=== PATIENT | male | born 1990 | race Caucasian/White ===

== ENCOUNTER 2021-07-19 14:33 | Outpatient (REF) | payer OTHER, SELFPAY | END 2021-07-19 14:34 | disposition home or self-care (01) | LOC: HO.LAB 14:33 | PROVIDERS: Visit Provider Internal Medicine | DX: Z20.822 Contact with and (suspected) exposure to COVID-19 (principal) | CPT/HCPCS: C9803; U0003; U0005 ==

== ENCOUNTER 2021-09-25 19:41 | Emergency (ER) | payer MEDICAID, SELFPAY | END 2021-09-25 21:23 | disposition left against medical advice (07) | LOC: HO.ED 21:25 | PROVIDERS: Emergency Provider Emergency Medicine | DX: R09.81 Nasal congestion (principal) ==

== ENCOUNTER 2021-09-27 08:07 | Emergency (ER) | payer MEDICAID, SELFPAY ==
[2021-09-27 08:43] VITALS: BP 183/103; PULSE 77; RESP 18; TEMP 36.6; O2SAT 100; BMI 25.0
--- NOTE | 2021-09-27 08:48 | ED_ITS ---
HPI - URI/Sore Throat General Chief Complaint: Upper Respiratory Symptoms Stated Complaint: difficulty breathing, migraine Time Seen by Provider: 09/27/21 08:41 Source: patient Mode of arrival: ambulatory Limitations: no limitations History of Present Illness HPI Narrative: Patient comes to the emergency room complaining of nasal congestion and sinus pressure. Patient states he has been going on for approximately 1 week. Patient states that he has been already immunize twice for COVID-19. Patient denies fever chills, no throat pain, no chest pain or shortness of breath. Related Data Previous Rx's Medication Instructions Recorded fluticasone propionate 50 1 spray INTRANASAL Q12H #16 g 09/27/21 mcg/actuation nasal spray,suspension (Flonase Allergy Relief) Allergies Allergy/AdvReac Type Severity Reaction Status Date / Time No Known Allergies Allergy Verified 09/27/21 08:41 Review of Systems Review of Systems: Constitutional : No Weight loss, No Fever, No Chills, No Night Sweats, No Fatigue, No Malaise ENT/Mouth : No Hearing loss, No Ear Pain, complaining of Nasal Congestion, complaining of Sinus Pain, No Hoarseness, No sore throat, No Rhinorrhea, No Swallowing Difficulty Eyes: No Eye Pain, No Swelling, No Redness, No Foreign Body, No Discharge, No Vision Changes Cardiovascular : No Chest Pain, No SOB, No Dyspnea on Exertion, No Orthopnea, No Edema, No Palpitations Respiratory : No Cough, No Sputum, No Wheezing, No Smoke Exposure, No Dyspnea Gastrointestinal : No Nausea, No Vomiting, No Diarrhea, No Constipation, No abdominal Pain, No Hematochezia, No Melena Genitourinary : no irregular bleeding, No Dysuria, No Urinary Frequency, No Hematuria, No Urinary Incontinence, No Urgency, No Flank Pain, No Urinary Flow Changes, No Hesitancy Musculoskeletal : No joint pain, No Myalgias, No Joint Swelling Skin : No Skin Lesions, No rash Neuro : No Weakness, No Numbness, No Paresthesias, No Loss of Consciousness, No Dizziness, No Headache Psych : No Anxiety/Panic, No Depression, No SI/HI/AH/VH, No Social Issues, Heme/Lymph: No Bruising, No Bleeding,No Lymphadenopathy Endocrine : No Polyuria, No Polydipsia, No Temperature Intolerance [facility] Past Medical History Medical History HIV (human immunodeficiency virus infection) Social History Social History Advance Directives: No Advance Directives Information Provided: No Physical Exam Vital Signs: Vital Signs: Last Vital Signs Temp 97.8 F 09/27/21 08:43 Pulse 77 09/27/21 08:43 Resp 18 09/27/21 08:43 BP 183/103 H 09/27/21 08:43 Pulse Ox 100 09/27/21 08:43 BMI result Body Mass Index 25.0 Const: Other: Appearance: Alert. Oriented X3. No acute distress. Eyes: Pupils equal, round and reactive to light. ENT: Pharynx normal. Mild discomfort to palpation over the ethmoid sinus Neck: Normal inspection. Neck supple. No lymph nodes noted. No crepitus CVS: Normal heart rate and rhythm. Pulses normal. Normal S1 and S2 Respiratory: No respiratory distress. Breath sounds normal. No Wheezing. No rales Abdomen: Soft and nontender. No rigidity. No distention. good BS x4 Skin: Skin warm and dry. Normal skin color. Normal skin turgor. Extremities: No lower extremity edema. No lower extremity edema. No Lacerations. No Rash Neuro: Oriented X 3. No motor deficit. No sensory deficit. Moving all extermities. No slurred speech. Course Course Course Narrative: Patient likely having viral sinusitis. COVID test is negative. MDM - URI/Sore Throat Lab Data Labs: Lab Results 09/27/21 Range/Units 08:46 COVID-19 (ALESHA) Negative (Negative) COVID-19 Clin Com See Note Discharge Plan Discharge Clinical Impression: Acute viral sinusitis Upper respiratory infection Qualifiers: URI type: unspecified URI Qualified Code(s): J06.9 - Acute upper respiratory infection, unspecified Patient Disposition: Home, Self-Care Instructions: Sinusitis (ED) Additional Instructions: Please follow-up with your primary care physician tomorrow. If you have any worsening or new symptoms, please return to the emergency room or call 911 Prescriptions: New fluticasone propionate [Flonase Allergy Relief] 50 mcg/actuation spray,suspension 1 spray intranasal Q12H Qty: 16 RF: 0
[2021-09-27 09:10] LABS: COVID-19 Test Negative (Negative)
== END 2021-09-27 09:58 | disposition home or self-care (01) ==
PROVIDERS: Physician Assistant; Emergency Provider Emergency Medicine
DX: J01.90 Acute sinusitis, unspecified (principal); Z20.822 Contact with and (suspected) exposure to COVID-19
CPT/HCPCS: 36415; 87635; 99283

== ENCOUNTER 2025-02-14 15:09 | Outpatient (REF) | payer MEDICAID, SELFPAY ==
[2025-02-14 16:01] LABS: MANUAL DIFF FLAG NO
[2025-02-14 16:19] LABS: Basophils Percent Auto 0.2 % (0-2); Eosinophils Percent Auto 0.2 % (0-4); Hematocrit 27.8 % (42.0-52.0); Hemoglobin 8.7 g/dl (14.0-18.0); Imm Gran Abs Auto 0.08 X10*3/uL (0.00-0.03); Lymphocytes Absolute Auto 0.9 X10*3/uL (1.2-4.9); Lymphocytes Percent Auto 10.4 % (20-40); Mean Corpuscular HGB Conc 31.3 g/dl (31.0-36.0); Mean Corpuscular Hemoglobin 25.1 pg (27.0-33.0); Mean Corpuscular Volume 80.3 fL (80.0-98.0); Mean Platelet Volume 9.4 fL (9.4-12.4); Monocytes Absolute Auto 0.6 X10*3/uL (0.1-1.2); Monocytes Percent Auto 7.6 % (2-11); Neutrophils Absolute Auto 6.6 x10*3/uL (2.0-8.3); Neutrophils Percent Auto 80.6 % (45-73); Platelet Count 551 X10*3/uL (160-400); Red Blood Count 3.46 X10*6/uL (4.60-5.80); Red Cell Distribution Width 13.8 % (11.0-16.0); White Blood Count 8.2 X10*3/uL (4.8-10.8)
[2025-02-14 16:35] LABS: Alanine Aminotransferase 15 U/L (0-40); Albumin Level 3.5 g/dL (3.5-5.0); Alkaline Phosphatase 79 U/L (39-117); Anion Gap 15 (12-20); Aspartate Amino Transferase 29 U/L (5-37); Bilirubin Direct 0.3 mg/dL (0.0-0.5); Bilirubin Total 0.6 mg/dL (0.0-1.0); Blood Urea Nitrogen 14 mg/dL (9-16); Carbon Dioxide 26 mmol/L (22-29); Chloride 99 mmol/L (96-108); Estimated Glomerular Filt Rate > 60; Glucose Random 93 mg/dL (60-115); Potassium 4.1 mmol/L (3.3-5.1); Sodium 136 mmol/L (135-145); Total Protein 8.6 g/dL (6.5-8.0)
[2025-02-15 16:07] LABS: CT PCR NOT DETECTED (Not Detect.); NG PCR NOT DETECTED (Not Detect.)
[2025-02-17 01:08] LABS: TSpotTB Invalid (Negative)
[2025-02-17 04:46] LABS: Syphilis Screen Reactive (Nonreactive)
[2025-02-17 05:05] LABS: HBS Num1 32.48 mIU/mL (0-7.99); HBc Num1 0.07 S/CO (0.00-0.79); HBsAGNum1 0.27 S/CO (0.00-0.99); Hepatitis B Core Antibody Nonreactive (Nonreactive); Hepatitis B Surface Antigen Negative (Negative); ~Hepatitis B Surface Antibody REACTIVE (Nonreactive)
[2025-02-17 07:39] LABS: RPR Rapid Plasma Reagin REACTIVE (NON-REACTIVE)
[2025-02-17 11:25] LABS: Ferritin 1797 ng/mL (20-250)
[2025-02-17 14:03] LABS: HIV RNA PCR Qn Copies 936000 copies/mL (NOT DETECTED); HIV RNA PCR Qn Log Copies 5.97 (NOT DETECTED)
[2025-02-20 01:29] LABS: Absolute CD3 Count 708 cells/uL (840-3060); Absolute CD4 Count 90 cells/uL (490-1740); Absolute CD8 Count 616 cells/uL (180-1170); Absolute Lymphocytes 821 cells/uL (850-3900); CD4 CD8 Ratio 0.15 (0.86-5.00); Percent CD3 Cells 86 % (57-85); Percent CD4 Cells 11 % (30-61); Percent CD8 Cells 75 % (12-42)
[2025-02-20 03:54] LABS: Hepatitis A Antibody IgG REACTIVE (Nonreactive); ~Hepatitis A Antibody IgG 4.07 S/CO (0.00-0.99)
[2025-02-23 14:24] LABS: RPR Quantitative Reactive 1:32 (Nonreactive)
[2025-02-23 14:25] LABS: T.Pallidum Particle Agg Test Reactive (Nonreactive)
== END 2025-02-14 15:10 | disposition home or self-care (01) ==
LOC: HO.HHCL 15:09
PROVIDERS: Visit Provider Student in an Organized Health Care Education/Training Program
DX: B34.9 Viral infection, unspecified (principal); D64.9 Anemia, unspecified
CPT/HCPCS: 36415; 80053; 82248; 82550; 82728; 85025; 86359; 86360; 86481; 86592; 86593; 86704; 86706; 86708; 86780; 87340; 87491; 87536; 87591

== ENCOUNTER 2025-02-17 11:10 | Outpatient (REF) | payer MEDICAID, SELFPAY ==
[2025-02-18 11:18] LABS: Appearance Urine Turbid; Color Urine Yellow; Glucose Urine UA Negative (Negative); Leukocyte Esterase Urine Large (3+) (Negative); Nitrite Urine Negative (Negative); PH 6.5 (5.0-9.0); Specific Gravity - Urine 1.015 (1.005-1.025); UMIC TRIGGER UACC YES; Urine Blood Moderate (2+) (Negative); Urine Ketones Negative (Negative); Urine Protein 30 (1+) mg/dL (Neg-Trace)
[2025-02-18 11:26] LABS: Bacteria Urine 4+ (None Seen); Hyaline Casts Urine 0-2 /LPF (0-2); RBC Urine >20 /HPF (0-2); Squamous Epithelial Cell Urine 0-2 /HPF (0-2); UACC Culture Trigger YES; WBC Urine >50 /HPF (0-5)
== END 2025-02-17 11:11 | disposition home or self-care (01) ==
LOC: HO.HHCLNP 11:10
PROVIDERS: Visit Provider Internal Medicine
DX: R39.9 Unspecified symptoms and signs involving the genitourinary system (principal)
CPT/HCPCS: 81001; 87086; 87088; 87186

== ENCOUNTER 2025-02-24 13:46 | Outpatient (REF) | payer MEDICAID, SELFPAY ==
[2025-02-24 16:11] LABS: MANUAL DIFF FLAG NO
[2025-02-24 16:19] LABS: Basophils Percent Auto 0.4 % (0-2); Eosinophils Absolute Auto 0.2 X10*3/uL (0.0-0.4); Eosinophils Percent Auto 4.1 % (0-4); Hematocrit 30.5 % (42.0-52.0); Hemoglobin 9.4 g/dl (14.0-18.0); Imm Gran Abs Auto 0.14 X10*3/uL (0.00-0.03); Imm Gran Pct Auto 2.5 % (0.0-0.4); Lymphocytes Absolute Auto 0.7 X10*3/uL (1.2-4.9); Mean Corpuscular HGB Conc 30.8 g/dl (31.0-36.0); Mean Corpuscular Hemoglobin 25.8 pg (27.0-33.0); Mean Corpuscular Volume 83.6 fL (80.0-98.0); Mean Platelet Volume 8.8 fL (9.4-12.4); Monocytes Absolute Auto 0.3 X10*3/uL (0.1-1.2); Monocytes Percent Auto 5.7 % (2-11); Neutrophils Absolute Auto 4.2 x10*3/uL (2.0-8.3); Neutrophils Percent Auto 75.3 % (45-73); Platelet Count 755 X10*3/uL (160-400); Red Blood Count 3.65 X10*6/uL (4.60-5.80); Red Cell Distribution Width 14.7 % (11.0-16.0); White Blood Count 5.6 X10*3/uL (4.8-10.8)
[2025-02-24 16:30] LABS: Estimated Average Glucose 131 mg/dL; Hemoglobin A1C 111.0701 umol/L; Hemoglobin A1c % 6.2 % (<6.0); Total Hemoglobin (HGBA1C) 2512.0861 umol/L
[2025-02-24 16:44] LABS: Alanine Aminotransferase 20 U/L (0-40); Albumin Level 3.8 g/dL (3.5-5.0); Anion Gap 13 (12-20); Aspartate Amino Transferase 53 U/L (5-37); Bilirubin Total 0.3 mg/dL (0.0-1.0); Blood Urea Nitrogen 17 mg/dL (9-16); Calcium 9.6 mg/dL (8.4-10.2); Carbon Dioxide 27 mmol/L (22-29); Chloride 102 mmol/L (96-108); Cholesterol 163 mg/dL (<200); Estimated Glomerular Filt Rate > 60; Glucose Random 79 mg/dL (60-115); HDL Cholesterol 19 mg/dL (>40); Iron 58 mcg/dL (45-160); LDL Cholesterol Calculated 68 mg/dL (<100); Percent Iron Saturation 26 % (15-50); Potassium 4.4 mmol/L (3.3-5.1); Sodium 138 mmol/L (135-145); Total Iron Binding Capacity 226 mcg/dL (228-428); Total Protein 8.8 g/dL (6.5-8.0); Triglycerides 380 mg/dL (<150); Unsaturated Iron Binding 168 ug/dL
[2025-02-24 16:54] LABS: Alkaline Phosphatase 99 U/L (39-117)
[2025-02-24 17:08] LABS: Vitamin D 25-OH Total 40.8 ng/mL (>30)
[2025-02-24 17:21] LABS: Folate 9.6 ng/mL (> or = 4.0); Vitamin B12 336 pg/mL (200-900)
[2025-02-24 17:39] LABS: Ferritin 1828 ng/mL (20-250)
[2025-02-25 08:00] LABS: ~HepC Num1 0.15 S/CO (0.00-0.79); ~Hepatitis C Antibody Nonreactive (Nonreactive)
[2025-02-27 17:48] LABS: C.Trachomatis RNA TMA, Rectal NOT DETECTED; N.Gonorrhoeae RNA TMA, Rectal NOT DETECTED
[2025-02-27 17:59] LABS: TS Negative Control Passed; TS Panel A 0; TS Panel B 0; TS Positive Control Passed; TSpotTB Negative (Negative)
[2025-02-27 18:58] LABS: C. Trachomatis RNA TMA, Throat NOT DETECTED; N. gonorrhoeae RNA TMA, Throat DETECTED
[2025-03-01 17:49] LABS: HIV Genotype DETECTED
== END 2025-02-24 13:47 | disposition home or self-care (01) ==
LOC: HO.HHCL 13:46
PROVIDERS: Internal Medicine; Visit Provider Student in an Organized Health Care Education/Training Program
DX: Z21 Asymptomatic human immunodeficiency virus [HIV] infection status (principal); D64.9 Anemia, unspecified; R10.13 Epigastric pain
CPT/HCPCS: 36415; 80053; 80061; 82306; 82607; 82728; 82746; 83036; 83540; 85025; 86403; 86481; 86803; 87491; 87591; 87900; 87901

== ENCOUNTER 2025-03-03 16:39 | Outpatient (REF) | payer MEDICAID, SELFPAY | END 2025-03-03 16:40 | disposition home or self-care (01) | LOC: HO.HHCLNP 16:39 | PROVIDERS: Visit Provider Student in an Organized Health Care Education/Training Program | DX: A54.9 Gonococcal infection, unspecified (principal); R10.9 Unspecified abdominal pain | CPT/HCPCS: 36415; 87081; 87086 ==

== ENCOUNTER 2025-06-02 09:39 | Outpatient (REF) | payer MEDICAID, SELFPAY ==
[2025-06-02 11:25] LABS: Hematocrit 39.0 % (42.0-52.0); Hemoglobin 12.4 g/dl (14.0-18.0); Imm Gran Abs Auto 0.01 X10*3/uL (0.00-0.03); Imm Gran Pct Auto 0.4 % (0.0-0.4); Lymphocytes Absolute Auto 0.9 X10*3/uL (1.2-4.9); MANUAL DIFF FLAG SCAN; Mean Corpuscular HGB Conc 31.8 g/dl (31.0-36.0); Mean Corpuscular Hemoglobin 27.4 pg (27.0-33.0); Mean Corpuscular Volume 86.3 fL (80.0-98.0); NRBC Abs Auto 0.000 X10*3/uL (0.0-0.012); NRBC Pct Auto 0.0 /100WBC (0.0-0.2); Platelet Count 359 X10*3/uL (160-400); Red Blood Count 4.52 X10*6/uL (4.60-5.80); SCAN SMEAR FLAG 1; White Blood Count 2.5 X10*3/uL (4.8-10.8)
[2025-06-02 11:39] LABS: Alanine Aminotransferase 25 U/L (0-40); Albumin Level 4.2 g/dL (3.5-5.0); Alkaline Phosphatase 80 U/L (39-117); Anion Gap 12 (12-20); Aspartate Amino Transferase 30 U/L (5-37); Blood Urea Nitrogen 11 mg/dL (9-16); Calcium 9.3 mg/dL (8.4-10.2); Carbon Dioxide 27 mmol/L (22-29); Chloride 105 mmol/L (96-108); Estimated Glomerular Filt Rate > 60; Lipase 23 U/L (8-78); Potassium 3.7 mmol/L (3.3-5.1); Sodium 140 mmol/L (135-145); Total Protein 8.0 g/dL (6.5-8.0)
[2025-06-03 15:28] LABS: Rubeola IgG (Measles) <13.50 AU/mL
[2025-06-05 18:04] LABS: Glucose-6-Phosphate Dehydrogen 20.0 U/g Hgb (7.0-20.5)
[2025-06-06 08:33] LABS: HIV RNA PCR Qn Copies 245000 Copies/mL; HIV RNA PCR Qn Log Copies 5.39 Log cps/mL
[2025-06-11 17:43] LABS: Date Viral Load Collected NG; Dolutegravir Resistance NOT PREDICTED; HIV-1 Bictegravir Resistance NOT PREDICTED; HIV-1 Cabotegravir Resistance NOT PREDICTED; HIV-1 Elvitegravir Resistance NOT PREDICTED; Raltegravir Resistance NOT PREDICTED; Value of Last HIV Viral Load NG copies/mL
== END 2025-06-02 09:40 | disposition home or self-care (01) ==
LOC: HO.HHCL 09:39
PROVIDERS: Internal Medicine; PCP Student in an Organized Health Care Education/Training Program; Visit Provider Student in an Organized Health Care Education/Training Program
DX: Z01.84 Encounter for antibody response examination (principal); Z11.4 Encounter for screening for human immunodeficiency virus [HIV]; Z21 Asymptomatic human immunodeficiency virus [HIV] infection status; R10.9 Unspecified abdominal pain
CPT/HCPCS: 36415; 80053; 82955; 83690; 85025; 86644; 86645; 86735; 86762; 86765; 86777; 86778; 86787; 87536; 87900; 87906

== ENCOUNTER 2025-08-05 13:49 | Outpatient (REF) | payer MEDICAID, SELFPAY ==
[2025-08-05 16:06] LABS: MANUAL DIFF FLAG NO
[2025-08-05 16:24] LABS: Hematocrit 35.5 % (42.0-52.0); Hemoglobin 11.2 g/dl (14.0-18.0); Imm Gran Abs Auto 0.01 X10*3/uL (0.00-0.03); Imm Gran Pct Auto 0.3 % (0.0-0.4); Lymphocytes Absolute Auto 1.0 X10*3/uL (1.2-4.9); Mean Corpuscular HGB Conc 31.5 g/dl (31.0-36.0); Mean Corpuscular Hemoglobin 26.4 pg (27.0-33.0); Mean Corpuscular Volume 83.7 fL (80.0-98.0); NRBC Abs Auto 0.000 X10*3/uL (0.0-0.012); NRBC Pct Auto 0.0 /100WBC (0.0-0.2); Platelet Count 390 X10*3/uL (160-400); Red Blood Count 4.24 X10*6/uL (4.60-5.80); White Blood Count 3.8 X10*3/uL (4.8-10.8)
[2025-08-05 16:50] LABS: Alanine Aminotransferase 35 U/L (0-40); Albumin Level 4.1 g/dL (3.5-5.0); Alkaline Phosphatase 107 U/L (39-117); Anion Gap 11 (12-20); Aspartate Amino Transferase 34 U/L (5-37); Blood Urea Nitrogen 15 mg/dL (9-16); Calcium 9.5 mg/dL (8.4-10.2); Carbon Dioxide 26 mmol/L (22-29); Chloride 109 mmol/L (96-108); Estimated Glomerular Filt Rate 58; Potassium 4.0 mmol/L (3.3-5.1); Sodium 142 mmol/L (135-145); Total Protein 8.0 g/dL (6.5-8.0)
[2025-08-07 07:04] LABS: HIV RNA PCR Qn Copies 1270000 copies/mL (NOT DETECTED); HIV RNA PCR Qn Log Copies 6.10 (NOT DETECTED)
[2025-08-08 19:33] LABS: Absolute CD3 Count 812 cells/uL (840-3060); Absolute CD8 Count 681 cells/uL (180-1170); Percent CD3 Cells 89 % (57-85); Percent CD8 Cells 74 % (12-42)
== END 2025-08-05 13:50 | disposition home or self-care (01) ==
LOC: HO.HHCL 13:49
PROVIDERS: PCP Student in an Organized Health Care Education/Training Program; Visit Provider Student in an Organized Health Care Education/Training Program
DX: Z21 Asymptomatic human immunodeficiency virus [HIV] infection status (principal)
CPT/HCPCS: 36415; 80053; 85025; 86359; 86360; 87536

== ENCOUNTER 2025-09-24 15:11 | Outpatient (REF) | payer MEDICAID, SELFPAY ==
[2025-09-24 16:14] LABS: MANUAL DIFF FLAG NO
[2025-09-24 16:28] LABS: Hematocrit 32.5 % (42.0-52.0); Hemoglobin 10.4 g/dl (14.0-18.0); Imm Gran Abs Auto 0.02 X10*3/uL (0.00-0.03); Imm Gran Pct Auto 0.7 % (0.0-0.4); Lymphocytes Absolute Auto 0.7 X10*3/uL (1.2-4.9); Mean Corpuscular HGB Conc 32.0 g/dl (31.0-36.0); Mean Corpuscular Hemoglobin 27.9 pg (27.0-33.0); Mean Corpuscular Volume 87.1 fL (80.0-98.0); NRBC Abs Auto 0.000 X10*3/uL (0.0-0.012); NRBC Pct Auto 0.0 /100WBC (0.0-0.2); Platelet Count 422 X10*3/uL (160-400); Red Blood Count 3.73 X10*6/uL (4.60-5.80); White Blood Count 3.1 X10*3/uL (4.8-10.8)
[2025-09-24 16:55] LABS: Alanine Aminotransferase 17 U/L (0-40); Albumin Level 3.8 g/dL (3.5-5.0); Alkaline Phosphatase 69 U/L (39-117); Anion Gap 12 (12-20); Aspartate Amino Transferase 26 U/L (5-37); Blood Urea Nitrogen 13 mg/dL (9-16); Calcium 8.9 mg/dL (8.4-10.2); Carbon Dioxide 28 mmol/L (22-29); Chloride 106 mmol/L (96-108); Estimated Glomerular Filt Rate > 60; Potassium 3.6 mmol/L (3.3-5.1); Sodium 142 mmol/L (135-145); Total Protein 7.8 g/dL (6.5-8.0)
[2025-09-25 09:06] LABS: Iron 35 mcg/dL (45-160); Percent Iron Saturation 14 % (15-50); Total Iron Binding Capacity 244 mcg/dL (228-428); Unsaturated Iron Binding 209 ug/dL
[2025-09-25 09:20] LABS: Ferritin 262 ng/mL (20-250)
== END 2025-09-24 15:12 | disposition home or self-care (01) ==
LOC: HO.HHCL 15:11
PROVIDERS: PCP Student in an Organized Health Care Education/Training Program; Visit Provider Student in an Organized Health Care Education/Training Program
DX: Z21 Asymptomatic human immunodeficiency virus [HIV] infection status (principal)
CPT/HCPCS: 36415; 80053; 82728; 83540; 85025; 86359; 86360; 87536

== ENCOUNTER 2025-10-07 17:48 | Emergency (ER) | payer MEDICAID, SELFPAY ==
--- NOTE | ~2025-10-07 | CT_ITS ---
CLINICAL HISTORY: Left flank pain Exam: Unenhanced CT abdomen and pelvis with multiplanar reformats. Comparison: None CT abdomen: Lung bases are clear. Liver is free of gross focal lesions and ductal dilatation. Gallbladder appears unremarkable. Spleen is unremarkable. Pancreas and adrenal glands appear unremarkable. Right kidney is unremarkable. Left kidney reveals [id number] hydroureteronephrosis and slight periureteral stranding. No ureteral stones are appreciated. Findings suggest recently passed left ureteral calculus, although ascending urinary tract infection on the left can not be excluded. No free intraperitoneal fluid or retroperitoneal masses or adenopathy. Abdominal aorta is normal caliber. Bowel loops reveal no abnormal wall thickening or distention. The appendix is unremarkable. CT pelvis: Prostate gland and seminal vesicles are unremarkable. Urinary bladder is free of gross filling defects. No pelvic masses, fluid or adenopathy. Osseous structures reveal no destructive osseous lesions. Impression: 1. [id number] left hydroureteronephrosis and slight left periureteral stranding, without urolithiasis. Findings suggest likely recently passed left ureteral calculus, although the possibility of ascending urinary tract infection on the left can not be excluded. This document has been electronically signed by: Guanaco Bull MD on 10/07/2025 20:21:22
[2025-10-07 17:59] VITALS: BP 161/102; PULSE 96; RESP 20; TEMP 36.4; O2SAT 99; BMI 26.8
[2025-10-07 18:02] VITALS: BP 161/98; PULSE 95; RESP 16; TEMP 36.5; O2SAT 99
--- NOTE | 2025-10-07 18:03 | ED.GENADULT ---
HPI - General Adult General Chief complaint: Abdominal Pain Stated complaint: L sided abdominal pain Time Seen by Provider: 10/07/25 18:41 Source: patient, family and old records reviewed Mode of arrival: ambulatory Limitations: no limitations History of Present Illness ED Provider: NAKIA MUNOZ narrative: 35-year-old male with no past surgical history but he does have history of HIV he was not compliant with his antivirals he notes he just had his blood done last week although his labs are improving as he started back on his regimen he states he still detectable. He comes in with 2 months of left-sided flank pain radiating across the abdomen. He denies any associated nausea, vomiting, diarrhea, change in stools, urinary symptoms. He states he has not had a fever or weight loss. He states it hurts to move in eat. He states the pain comes and goes sharp and stabbing. He states he came in today as the pain became worse MD complaint: Left upper quadrant pain Onset (ago): month(s) (To) Location: abdomen Radiation: back Severity: moderate Quality: aching Pain Consistency: constant Relieving factors: none Exacerbating factors: movement Associated symptoms: denies other symptoms Treatments prior to arrival: none Related Data Previous Rx's ?Medication ?Instructions ?Recorded fluticasone propionate 50 1 spray intranasal Q12H #16 grams 09/27/21 mcg/actuation nasal spray,suspension (Flonase Allergy Relief) cefuroxime axetil 500 mg tablet 500 mg PO BID 10 days #20 tabs 10/07/25 doxycycline hyclate 100 mg capsule 100 mg PO BID 10 days #20 caps 10/07/25 hydrocodone 5 mg-acetaminophen 325 1 tab PO Q6H PRN pain #10 tabs 10/07/25 mg tablet ondansetron 4 mg disintegrating 4 mg PO Q8H PRN nausea and 10/07/25 tablet vomiting #20 tabs Allergies Allergy/AdvReac Type Severity Reaction Status Date / Time No Known Allergies Allergy Verified 10/07/25 18:01 Review of Systems Review of Systems: Yes all other systems are reviewed and are negative PMFSH Past Medical History Attestation statement: The following information was validated with the patient. Source: old records reviewed Medical History HIV (human immunodeficiency virus infection) Social History Social History Substance Use Type: Marijuana Physical Exam ED Vital Signs: Vital Signs - 24 hr 10/07/25 17:59 10/07/25 18:02 10/07/25 20:00 Temperature 97.5 F 97.7 F 98.0 F Pulse Rate 96 95 107 H Respiratory Rate 20 16 16 Blood Pressure 161/102 H 161/98 H 149/99 H Pulse Oximetry 99 99 97 Oxygen Delivery Method Room Air Room Air Room Air 10/07/25 21:47 10/07/25 22:14 10/07/25 22:18 Temperature 98.9 F 98.9 F Pulse Rate 96 97 97 Respiratory Rate 20 20 20 Blood Pressure 154/96 H 154/96 H Pulse Oximetry 95 95 Oxygen Delivery Method Room Air Room Air BMI result Body Mass Index 26.8 Appearance: Alert. Oriented X3. No acute distress. Eyes: Pupils equal, round and reactive to light. ENT: Pharynx normal. Neck: Normal inspection. Neck supple. CVS: Normal heart rate and rhythm. Pulses normal. Respiratory: No respiratory distress. Breath sounds normal. Abdomen: Soft with left-sided CVA tenderness to palpation in tenderness to palpation along the left upper quadrant no rebound Skin: Skin warm and dry. Normal skin color. Normal skin turgor. Extremities: No lower extremity edema. No calf ttp Neuro: Oriented X 3. No motor deficit. No sensory deficit. CN2-12 intact Course Course Course Narrative: RME: 35-year-old male presents to ED for left-sided abdominal pain without any genitourinary symptoms. Labs ordered Medications Administered Discontinued Medications Generic Name Dose Route Start Last Admin Trade Name Lukeq PRN Reason Stop Dose Admin Doxycycline Monohydrate 100 mg 10/07/25 21:37 10/07/25 21:46 Doxycycline Monohydrate 100 Mg Capsule PO 10/07/25 21:38 100 mg ONCE ONE Administration Lactated Ringer's 1,000 mls @ 999 mls/hr 10/07/25 18:49 10/07/25 20:27 Lr IV 10/07/25 19:49 Infused .Q1H1M ONE Infusion Ceftriaxone Sodium 1 gm/ 50 mls @ 100 mls/hr 10/07/25 21:29 10/07/25 22:14 Sodium Chloride IV 10/07/25 21:58 Infused ONCE ONE Infusion Morphine Sulfate 4 mg 10/07/25 18:58 10/07/25 19:13 Morphine Sulfate 4 Mg/Ml Cartridge IVPUSH 10/07/25 18:59 4 mg ONCE ONE Administration Protocol Medical Decision Making Medical Decision Making [facility] Narrative: 35-year-old male who is HIV positive he was not compliant with his antivirals he does note he has detectable at this time comes in with 2 months of left upper quadrant left flank pain he denies any trauma, nausea, vomiting, diarrhea, urinary symptoms. He has no fevers or weight loss. He is tender on exam it seems mostly on the obliques. At this time given his history I am going to obtain basic labs, UA, CT scan for renal colic. I have ordered IV pain medication and IV fluids. Baseline creatinine is 1.3 today he is 1.5 so he has mild dehydration Differential Diagnosis Differential Diagnoses: The differential diagnosis associated with the presentation includes Constipation, renal colic, mass, diverticular pathology, oblique strain Admission/Observation Consideration of admission/observation: Escalation of care including admission/observation considered He does not meet criteria for GUNNAR his creatinine is slightly bumped have him recheck with his primary care I am going to start him on an oral antibiotic for possible ascending urinary tract infection I did dose him with an IV antibiotic He has no signs of sepsis he does have a low CD4 count but I think giving him dual coverage including a cephalosporin and doxycycline with outpatient follow-up to recheck his creatinine will be beneficial 9:46 PM 10/07/2025 (NAKIA JONES): I did discuss admission with the patient and his partner but he declines and states he would like to go home he and his partner where he can return at any time and to not wait on severe symptoms at home as he should come to the hospital and seek emergent medical care Lab Data [facility] Lab Attestation statement: I reviewed the patient's lab results. 10/07/25 18:12 10/07/25 18:12 Labs: Lab Results 10/07/25 10/07/25 10/07/25 Range/Units 18:12 21:16 22:11 WBC 6.0 (4.8-10.8) X10*3/uL RBC 4.19 L (4.60-5.80) X10*6/uL Hgb 11.5 L (14.0-18.0) g/dl Hct 36.6 L (42.0-52.0) % MCV 87.4 (80.0-98.0) fL MCH 27.4 (27.0-33.0) pg MCHC 31.4 (31.0-36.0) g/dl RDW 13.0 (11.0-16.0) % Plt Count 380 (160-400) X10*3/uL MPV 8.7 L (9.4-12.4) fL Immature Gran % (Auto) 0.2 (0.0-0.4) % Neut % (Auto) 74.6 H (45-73) % Lymph % (Auto) 15.2 L (20-40) % Rapides % (Auto) 8.0 (2-11) % Eos % (Auto) 1.8 (0-4) % Baso % (Auto) 0.2 (0-2) % Lymph # (Auto) 0.9 L (1.2-4.9) X10*3/uL [place]ides # (Auto) 0.5 (0.1-1.2) X10*3/uL Eos # (Auto) 0.1 (0.0-0.4) X10*3/uL Baso # (Auto) 0.0 (0.0-0.2) X10*3/uL Abs Immat Gran (auto) 0.01 (0.00-0.03) X10*3/uL Absolute Neuts (auto) 4.5 (2.0-8.3) x10*3/uL Absolute Nucleated RBC 0.000 (0.0-0.012) X10*3/uL Nucleated RBC % (auto) 0.0 (0.0-0.2) /100WBC Sodium 140 (135-145) mmol/L Potassium 3.5 (3.3-5.1) mmol/L Chloride 104 (96-108) mmol/L Carbon Dioxide 26 (22-29) mmol/L Anion Gap 14 (12-20) BUN 20 H (9-16) mg/dL Creatinine 1.55 H (0.5-1.4) mg/dL Estim Creat Clear Calc 60.0 Estimated GFR 51 Random Glucose 112 (60-115) mg/dL Calcium 9.6 D (8.4-10.2) mg/dL Total Bilirubin 0.3 (0.0-1.0) mg/dL AST 33 (5-37) U/L ALT 19 (0-40) U/L Alkaline Phosphatase 78 (39-117) U/L Total Protein 8.7 H (6.5-8.0) g/dL Albumin 4.2 (3.5-5.0) g/dL Lipase 21 (8-78) U/L Urine Color Yellow Urine Appearance Clear Urine pH 7.5 (5.0-9.0) Ur Specific [place]rington 1.015 (1.005-1.025) Urine Protein Trace (Neg-Trace) mg/dL Urine Glucose (UA) Negative (Negative) mg/dL Urine Ketones Negative (Negative) mg/dL Urine Blood Trace H (Negative) Urine Nitrite Negative (Negative) Ur Leukocyte Esterase Moderate (2+) H (Negative) Urine RBC 3-5 H (0-2) /HPF Urine WBC >50 H (0-5) /HPF Ur Squamous Epith Cells 0-2 (0-2) /HPF Urine Bacteria None Seen (None Seen) Hyaline Casts 0-2 (0-2) /LPF Ur N gonorrhoeae DNA (PCR) NOT DETECTED (Not Detect.) Ur Chlamydia DNA (PCR) NOT DETECTED (Not Detect.) Independent Interpretation I performed an independent interpretation of an: CT Scan (Left-sided hydro ureter with some stranding) Radiology Impression Discussion of test interpretation with radiology: I have reviewed the radiologist's reading. Independent Historian Clinical information obtained from an independent historian. History obtained from or confirmed by: Spouse External Record Review External record reviewed: Outpatient record Prescription Management I considered prescription management with: Antibiotic and Other Discharge Plan Discharge Clinical Impression: Acute pyelonephritis, Acute dehydration Patient Disposition: Home, Self-Care Instructions: Dehydration (ED), Kidney Infection (ED) Additional Instructions: At this time there is concern that he having urinary tract infection as well as a sexually transmitted infection that test is pending we will not be back for 24-48 hours he will call if it is positive I am going to treat you for both You will need to follow up with your doctor and repeat your kidney function tests in the next few days Take Tylenol as needed for the pain Return for any worsening symptoms such as fever, vomiting, unable to eat or drink, any other concerns On a cephalosporin?antibiotic, softer bowel movements are to be expected. Call your provider if you move your bowels more than 4 times a day, your bowel movements are almost all liquid, or you get a rash.?? On doxycycline, do not take pills immediately before going to bed and swallow pills with plenty of water. Avoid direct sunlight, iron, antacids, and Pepto Bismol. Call your provider if you develop new ringing in your ears, new problems hearing, dizziness, difficulty swallowing, rash, abdominal discomfort, nausea, or diarrhea.? Prescriptions: New doxycycline hyclate 100 mg capsule 100 mg PO BID 10 Days Qty: 20 0RF hydrocodone-acetaminophen 5-325 mg tablet 1 tab PO Q6H PRN (Reason: pain) Qty: 10 0RF Rx Instructions: partial fill okay; Partial Fill upon patient request. cefuroxime axetil 500 mg tablet 500 mg PO BID 10 Days Qty: 20 0RF ondansetron 4 mg tablet,disintegrating 4 mg PO Q8H PRN (Reason: nausea and vomiting) Qty: 20 0RF No Action fluticasone propionate [Flonase Allergy Relief] 50 mcg/actuation spray,suspension 1 spray intranasal Q12H Qty: 16 0RF Rx Instructions: administer into each nostril Interventions: ED Discharge Assessment Last Done: 10/07/25 22:18 Discharge Date/Time: 10/07/25 22:26 Print Language: Algerian
[2025-10-07 18:20] LABS: MANUAL DIFF FLAG NO
[2025-10-07 18:21] LABS: Hematocrit 36.6 % (42.0-52.0); Hemoglobin 11.5 g/dl (14.0-18.0); Imm Gran Abs Auto 0.01 X10*3/uL (0.00-0.03); Imm Gran Pct Auto 0.2 % (0.0-0.4); Lymphocytes Absolute Auto 0.9 X10*3/uL (1.2-4.9); Mean Corpuscular HGB Conc 31.4 g/dl (31.0-36.0); Mean Corpuscular Hemoglobin 27.4 pg (27.0-33.0); Mean Corpuscular Volume 87.4 fL (80.0-98.0); NRBC Abs Auto 0.000 X10*3/uL (0.0-0.012); NRBC Pct Auto 0.0 /100WBC (0.0-0.2); Platelet Count 380 X10*3/uL (160-400); Red Blood Count 4.19 X10*6/uL (4.60-5.80); White Blood Count 6.0 X10*3/uL (4.8-10.8)
[2025-10-07 18:34] LABS: Alanine Aminotransferase 19 U/L (0-40); Albumin Level 4.2 g/dL (3.5-5.0); Alkaline Phosphatase 78 U/L (39-117); Anion Gap 14 (12-20); Aspartate Amino Transferase 33 U/L (5-37); Blood Urea Nitrogen 20 mg/dL (9-16); Calcium 9.6 mg/dL (8.4-10.2); Carbon Dioxide 26 mmol/L (22-29); Chloride 104 mmol/L (96-108); Creatinine Clr Calc Pharmacy 60.0; Estimated Glomerular Filt Rate 51; Lipase 21 U/L (8-78); Potassium 3.5 mmol/L (3.3-5.1); Sodium 140 mmol/L (135-145); Total Protein 8.7 g/dL (6.5-8.0)
[2025-10-07] MEDS: Lactated Ringers 1,000 ML 999 ML IV (19:16)
[2025-10-07 20:00] VITALS: BP 149/99; PULSE 107; RESP 16; TEMP 36.7; O2SAT 97
[2025-10-07 21:22] LABS: Appearance Urine Clear; Glucose Urine UA Negative (Negative); PH 7.5 (5.0-9.0); Specific Gravity - Urine 1.015 (1.005-1.025); UMIC TRIGGER UACC YES
[2025-10-07 21:28] LABS: UACC Culture Trigger YES
[2025-10-07 21:47] VITALS: PULSE 96; RESP 20
[2025-10-07 22:14] VITALS: BP 154/96; PULSE 97; RESP 20; TEMP 37.2; O2SAT 95
[2025-10-07 22:18] VITALS: BP 154/96; PULSE 97; RESP 20; TEMP 37.2; O2SAT 95
[2025-10-08 00:47] LABS: CT PCR Urine NOT DETECTED (Not Detect.); NG PCR Urine NOT DETECTED (Not Detect.)
== END 2025-10-07 22:26 | disposition home or self-care (01) ==
PROVIDERS: Physician Assistant; Emergency Provider Emergency Medicine; PCP Student in an Organized Health Care Education/Training Program
DX: N10 Acute pyelonephritis (principal); E86.0 Dehydration; R10.A2 Flank pain, left side; Z20.2 Contact with and (suspected) exposure to infections with a predominantly sexual mode of transmission
CPT/HCPCS: 36415; 74176; 80053; 81001; 83690; 85025; 87086; 87491; 87591; 96361; 96365; 96375; 99284; 99285; J0696; J2270; J7120

== ENCOUNTER → 2025-10-07 18:49 | Outpatient (BNV) | payer MEDICAID, SELFPAY | PROVIDERS: Emergency Provider Emergency Medicine; PCP Student in an Organized Health Care Education/Training Program; Visit Provider Radiology Diagnostic Radiology | DX: N13.30 Unspecified hydronephrosis (principal) | CPT/HCPCS: 74176 ==